=== PATIENT | female | born 1965 ===

== ENCOUNTER 2023-04-09 08:54 | Day surgery (SDC) | payer OTHER ==
[~2023-04-09] VITALS: Ht 149.9 cm; Wt 78.0 kg
[~2023-04-09 08:54] MED LIST: ACID REDUCER20 M1 PO; ATORVASTATIN CA20 MG PO; CHILDREN'S ASPI81 MG PO; GLIMEPIRIDE4 M1 PO; SINGULAIR10 MG PO; SYNTHROID50 MCG PO; TRADJENTA5 MG PO; ZESTORETIC 10-1 EACH PO
== END 2023-04-09 18:10 | disposition home or self-care (01) ==
LOC: CIR.AMB 08:54
PROVIDERS: ATTEND Orthopaedic Surgery
DX: M75.121 Complete rotator cuff tear or rupture of right shoulder, not specified as traumatic (principal); M75.21 Bicipital tendinitis, right shoulder; M24.111 Other articular cartilage disorders, right shoulder; I10 Essential (primary) hypertension; E11.9 Type 2 diabetes mellitus without complications; Z79.84 Long term (current) use of oral hypoglycemic drugs; Z20.822 Contact with and (suspected) exposure to COVID-19